=== PATIENT | female | born 1960 | race Caucasian/White ===

== ENCOUNTER 2019-04-02 07:26 | Outpatient (CLI) | payer MEDICAID, SELFPAY ==
--- NOTE | 2019-04-02 07:34 | MM_ITS ---
WS: [id number] BILATERAL DIGITAL SCREENING MAMMOGRAPHY WITH CAD CLINICAL INFORMATION: SCREENING HISTORY: Screening mammogram. No current complaints. COMPARISON: May 01, 2018 TECHNIQUE: Bilateral CC and MLO views. FINDINGS: Scattered fibroglandular densities bilaterally. Stable intramammary lymph nodes. No suspicious focal mass, asymmetry, calcifications, or architectural distortion. No evidence of malignancy. MM/[place] [id number] IMPRESSION: BI-RADS: 2-Benign FOLLOW UP: 1 Year Follow-up Recommend return to annual screening mammography.
== END 2019-04-02 07:27 | disposition home or self-care (01) ==
LOC: RADSHAW 07:29
PROVIDERS: Family Provider Family Medicine; Visit Provider Family Medicine
DX: Z12.31 Encounter for screening mammogram for malignant neoplasm of breast (principal)
CPT/HCPCS: 77067

== ENCOUNTER 2020-05-09 07:44 | Outpatient (CLI) | payer MEDICAID, SELFPAY ==
--- NOTE | 2020-05-09 07:49 | MM_ITS ---
WS: [id number] Exam: [place] [id number] Date/Time of Exam: 05/09/2020 7:49 AM Reason For Exam: SCREENING VIEWS: MLO and CC views both breasts. Comparison made with prior exam of 04/02/2017, 05/01/2018, and 04/02/2019.. Findings: There is a 3 mm ill-defined nodular density identified in the central right breast on the CC view onl y slightly medial to the nipple line. This is not definitely seen on prior studies performed in 2017 and 2018. No architectural distortion or suspicious calcification. Remaining aspects of both breasts are stable in appearance. The breasts are fatty. MM/[place] [id number] Impression: BI-RADS: 0-Incomplete: Need additional imaging evaluation FOLLOW-UP: Magnification compression spot imaging of the right breast in the CC projection suggested for further workup. Ultrasound may be necessary. This mammogram was also analyzed by the Computer Aided Detection System R2 Imag e Cracking Unit Operator.
== END 2020-05-09 07:45 | disposition home or self-care (01) ==
LOC: RADSHAW 07:47
PROVIDERS: PCP Family Medicine; Visit Provider Family Medicine
DX: Z12.31 Encounter for screening mammogram for malignant neoplasm of breast (principal); N63.10 Unspecified lump in the right breast, unspecified quadrant
CPT/HCPCS: 77067

== ENCOUNTER → 2020-06-30 14:28 | Outpatient (BNVA) | payer MEDICAID, SELFPAY | PROVIDERS: PCP Family Medicine; Visit Provider Obstetrics & Gynecology | DX: N95.2 Postmenopausal atrophic vaginitis (principal); Z90.710 Acquired absence of both cervix and uterus | CPT/HCPCS: 76830; 76857 ==

== ENCOUNTER 2020-07-21 08:53 | Outpatient (CLI) | payer MEDICAID, SELFPAY ==
--- NOTE | 2020-07-21 09:04 | US_ITS ---
WS: [id number] ADDITIONAL VIEWS RIGHT BREAST RIGHT breast ultrasound, limited HISTORY: ABNORMAL MAMMOGRAM COMPARISON: 05/09/2020, 04/02/2019 and 05/01/2018 and 05/01/2018 Compression views right CC and MLO projection. True ML also submitted. Small asymmetry seen in the medial RIGHT breast persists. This nodule measures 3 mm. This may be a be nign lymph node. Ultrasound to follow. RIGHT breast ultrasound, limited. Ultrasound is directed to the medial upper RIGHT breast. There is no underlying mass identified. No l ymph nodes. US/US breast RT limited* [id number] IMPRESSION: BI-RADS: 3-Probably Benign FOLLOW-UP: 6 Month Follow-up Recommend diagnostic mammogram in 6 months and possible ultrasound if the asymm etry persists by mammography.
== END 2020-07-21 08:54 | disposition home or self-care (01) ==
PROVIDERS: PCP Family Medicine; Visit Provider Family Medicine
DX: R92.8 Other abnormal and inconclusive findings on diagnostic imaging of breast (principal)
CPT/HCPCS: 76642; 77065

== ENCOUNTER 2022-03-30 13:41 | Outpatient (CLI) | payer MEDICAID, SELFPAY ==
--- NOTE | 2022-03-30 13:53 | MM_ITS ---
WS: [id number] BILATERAL 3D TOMOSYNTHESIS DIGITAL DIAGNOSTIC MAMMOGRAPHY WITH CAD CLINICAL INFORMATION: 6MFU COMPARISON: July 21, 2020 TECHNIQUE: Bilateral CC, MLO, and ML views. FINDINGS: Scattered fibroglandular densities bilaterally. 3 mm small asymmetry in the medial RIGHT breast is un changed from 2020. This is also stable compared to April 02, 2019. Ultrasound described below. LEFT breast is unchanged. A few tiny stable punctate and clustered calcifications. ULTRASOUND BREAST RIGHT TECHNIQUE: Ultrasound right breast focused area of concern. CLINICAL INFORMATION: 6MFU FINDINGS: Ultrasound RIGHT breast upper inner quadrant 12-3 o'clock. Small asymmetry seen on the mammogram was not visualized on this study. No suspicious lesions. No lesions to target for biopsy. 3 mm mammographic asymmetry is stable since April 02, 2019. Recommend return to annual screening m amstefanie. MM/[place] [id number] IMPRESSION: BI-RADS: 2-Benign FOLLOW UP: 1 Year Follow-up Recommend return to annual screening mammography.
== END 2022-03-30 13:42 | disposition home or self-care (01) ==
PROVIDERS: PCP Family Medicine; Visit Provider Family Medicine
DX: R92.8 Other abnormal and inconclusive findings on diagnostic imaging of breast (principal)
CPT/HCPCS: 76642; 77066

== ENCOUNTER 2023-08-01 15:32 | Outpatient (CLI) | payer MEDICAID, SELFPAY ==
--- NOTE | 2023-08-01 15:51 | MM_ITS ---
WS: [id number] BILATERAL SCREENING DIGITAL TOMOSYNTHESIS MAMMOGRAM WITH CAD HISTORY: SCREEN COMPARISON: 03/30/2022, 04/02/2019 Bilateral CC and MLO views with tomosynthesis and synthetic mammography submitted. Computer aided det ection analyzed. Breast composition: There are scattered areas of fibroglandular density. No suspicious masses, microc alcifications or architectural distortion. Stable nodules and benign calcifications in each breast. MM/[place] [id number] IMPRESSION: BI-RADS: 2-Benign FOLLOW UP: 1 Year Follow-up
== END 2023-08-01 15:33 | disposition home or self-care (01) ==
LOC: RAD 15:32
PROVIDERS: PCP Family Medicine; Visit Provider Family Medicine
DX: Z12.31 Encounter for screening mammogram for malignant neoplasm of breast (principal); R92.323 Mammographic fibroglandular density, bilateral breasts; R92.1 Mammographic calcification found on diagnostic imaging of breast; N63.20 Unspecified lump in the left breast, unspecified quadrant; N63.10 Unspecified lump in the right breast, unspecified quadrant
CPT/HCPCS: 77063; 77067

== ENCOUNTER → 2023-09-09 10:53 | Outpatient (BNVA) | payer MEDICAID, SELFPAY | PROVIDERS: PCP Family Medicine; Visit Provider Surgery | DX: Z12.11 Encounter for screening for malignant neoplasm of colon (principal); R03.0 Elevated blood-pressure reading, without diagnosis of hypertension; Z80.0 Family history of malignant neoplasm of digestive organs; K21.9 Gastro-esophageal reflux disease without esophagitis; R10.11 Right upper quadrant pain | CPT/HCPCS: 99204 ==

== ENCOUNTER 2023-10-07 07:58 | Outpatient (CLI) | payer MEDICAID, SELFPAY ==
--- NOTE | 2023-10-07 09:00 | US_ITS ---
WS: [id number] ULTRASOUND ABDOMEN LIMITED CLINICAL INFORMATION: RUQ abdominal pain COMPARISON: Ultrasound 2016 FINDINGS: Liver Size: Normal. Craniocaudal length: 13.8 cm. Echogenicity: Normal. Surface nodularity: None. Mass (size and location): None. Bile ducts Intrahepatic ducts: Normal. Common bile duct diameter: 0.3 cm. Gallbladder Cholelithiasis Gallstones: Present Gallbladder sludge: None. Gallbladder wall thickening: None. Pericholecystic fluid: None. Sonographic Garcia sign: Absent. Pancreas Normal as visualized. Right kidney: Normal. Hydronephrosis: None. Size: 10.1 cm x 5.1 cm x 3.9 cm. Abdominal aorta and IVC Visualized portions are normal. Ascites: None. US/US gall bladder [id number] IMPRESSION: 1. Cholelithiasis. Gallbladder calculus near the gallbladder neck. This is sim ilar in appearance to 2016. No gallbladder wall thickening or pericholecystic f luid. 2. Normal common bile duct. 3. No hydronephrosis in the RIGHT kidney. 4. Normal liver
== END 2023-10-07 07:59 | disposition home or self-care (01) ==
LOC: RAD 07:58
PROVIDERS: PCP Family Medicine; Visit Provider Surgery
DX: K80.20 Calculus of gallbladder without cholecystitis without obstruction (principal); R10.11 Right upper quadrant pain
CPT/HCPCS: 76705

== ENCOUNTER 2023-12-02 08:41 | Day surgery (SDC) | payer MEDICAID, SELFPAY ==
[2023-12-02 09:09] VITALS: BP 172/97; PULSE 121; RESP 20; TEMP 36.3; O2SAT 97; BMI 28.1
[2023-12-02] MEDS: sodium chloride 0.9% 1,000 ML 30 ML IV (09:13)
--- NOTE | 2023-12-02 09:35 | P.ANESASSM_ITS ---
Pre-Anesthetic Assessment Height/Weight: Height 4 ft 9 in Weight 130 lb Temp Pulse Resp BP Pulse Ox O2 Del Method 97.4 F L 121 H 20 H 172/97 97 Room Air 12/02/23 09:09 12/02/23 09:09 12/02/23 09:09 12/02/23 09:09 12/02/23 09:09 12/02/23 09:09 Preop Diagnosis: Plan for colonoscopy/EGD Operation Date: 12/02/23 09:15 Proposed Procedures p EGD - 24808, 32339, G0105,Z12.11, Z80.0, K21.9, R10.11(Not Applicable) - Giovany Damian DO s Colonoscopy(Not Applicable) - Giovany Damian DO Was Beta Rona taken within 24 hours: N/A Was Clonidine taken within 24 hours: N/A Last intake: Intake Last Liquid Date 12/01/23 Last Liquid Time 23:55 Last Solid Date 11/30/23 Last Solid Time 17:00 Social No alcohol and No tobacco Exam alert, oriented x 3, clear to auscultation bilaterally and regular rate & rhythm Airway Submandibular: within normal limits Cervical ROM: within normal limits Mallampati: Class III Dentition: other (Edentulous, small mouth opening) Anesthetic Plan ASA status: 3 Anesthesia: MAC Other: No prior issues with anesthesia Patient completed bowel prep, patient comes from a facility, guardian present Hypothyroidism on Synthroid Hypertension on lisinopril Takes trazodone nightly Denies any pulmonary issues METs greater than 4 Plan for MAC anesthesia Medications/Allergies Home Medications Medication Instructions Recorded Confirmed Last Taken Type alprazolam 0.25 mg tablet (Xanax) 0.25 mg PO BEDTIME 06/24/20 11/28/23 12/01/23 History clonidine HCl 0.1 mg tablet 0.1 mg PO DAILY 06/24/20 11/28/23 12/01/23 History fluticasone propionate 50 1 spray intranasal BID 06/24/20 11/28/23 12/01/23 History mcg/actuation nasal spray,suspension hydroxyzine pamoate 25 mg capsule 25 mg PO DAILY PRN Itching 06/24/20 11/28/23 1 Month Ago History (Vistaril) ~11/02/23 loratadine 10 mg tablet (Claritin) 10 mg PO DAILY 06/24/20 11/28/23 12/01/23 History multivitamin 1 tab PO BID 06/24/20 11/28/23 11/28/23 History pantoprazole 40 mg tablet,delayed 40 mg PO DAILY 06/24/20 11/28/23 12/01/23 History release (Protonix) trazodone 50 mg tablet 50 mg PO BEDTIME 06/24/20 11/28/23 12/01/23 History venlafaxine 37.5 mg tablet 37.5 mg PO DAILY 06/24/20 11/28/23 12/01/23 History acetaminophen 500 mg tablet 500 mg PO Q6H PRN Pain 10/28/23 11/28/23 1 Month Ago History ~11/02/23 ascorbic acid (vitamin C) 500 mg 500 mg PO DAILY PRN Outbreak 10/28/23 11/28/23 1 Month Ago History chewable tablet (Vitamin C) ~11/02/23 guaifenesin 100 mg/5 mL oral liquid 200 mg PO Q4H PRN Cough 10/28/23 11/28/23 1 Month Ago History ~11/02/23 levothyroxine 50 mcg tablet 50 mcg PO DAILY 10/28/23 12/02/23 12/01/23 History 0600 lisinopril 10 mg tablet 10 mg PO DAILY 10/28/23 11/28/23 12/01/23 History polyethylene glycol 3350 17 gram 17 g PO DAILY 10/28/23 11/28/23 12/01/23 History oral powder packet (Miralax) sodium chloride 0.65 % nasal spray 1 spray intranasal TID 10/28/23 11/28/23 12/01/23 History aerosol (Deep Sea Nasal) Allergies Allergy/AdvReac Type Severity Reaction Status Date / Time No Known Allergies Allergy Verified 11/28/23 15:27 Current Medications Generic Name Dose Route Start Last Admin Trade Name Freq PRN Reason Stop Dose Admin Sodium Chloride 1,000 mls @ 30 mls/hr 12/02/23 09:00 12/02/23 09:13 Sodium Chloride 0.9% IV 12/03/23 08:59 30 mls/hr .Q24H CHITRA Administration PFSH Anesthesia Medical History (Updated 09/09/23 @ 11:30 by Giovany Damian DO) H/O fracture of arm 2013- For fracture of the forearm/wrist. Status post hysteroscopy Done on 02/21/2010 for menorrhagia and anemia. During hysteroscopy a friable mass was noted on the left side which protruded into the endometrial cavity which was concerning for malignancy and this was curetted. 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 Family history of colon cancer Surgical History (Updated 09/09/23 @ 11:30 by Giovany Damian DO) H/O: hysterectomy -She underwent a total abdominal hysterectomy, bilateral salpingo- oophorectomy, pelvic washings with partial omentectomy and appendectomy in March [address] Melo for serious endometrial carcinoma with acute bleeding. H/O gynecological procedure Robotic Surgery performed by Dr. Ding in 2010- Done for staging for endometrial cancer after her total abdominal hysterectomy done on 05/26/2010 and operative reports as per Dr. Patricia's notes shows significant adhesions. S/P appendectomy H/O lumpectomy right breast 2017 Family History Family/Other Diabetes maternal Stroke paternal cousin Grandmother Diabetes maternal Mother Heart disease Thyroid disease Colon cancer, Onset Age: 81 Denies family history of Ovarian cancer Clotting disorder Hyperlipidemia Breast cancer Anesthesia complication Bleeding disorder Hypertension Uterine cancer Social History Smoking and tobacco/nicotine status: never used tobacco/nicotine Alcohol intake: never Substance/Drug Use: never Data Anesthesia Cardiac Studies: No Data to Display
--- NOTE | 2023-12-02 09:49 | P.HP_ITS ---
Providers/Chief Complaint Primary Care Provider: Rosemary Srivastava MD Chief Complaint: Z12.11, Z80.0, K21.9, R10.11 History of Present Illness Queta Helton is a 63 year old female Review of Systems General: Reports: 10 or more systems reviewed and unremarkable except in HPI and below Medications/Allergies Home Medications Medication Instructions Recorded Confirmed Last Taken Type alprazolam 0.25 mg tablet (Xanax) 0.25 mg PO BEDTIME 06/24/20 11/28/23 12/01/23 History clonidine HCl 0.1 mg tablet 0.1 mg PO DAILY 06/24/20 11/28/23 12/01/23 History fluticasone propionate 50 1 spray intranasal BID 06/24/20 11/28/23 12/01/23 History mcg/actuation nasal spray,suspension hydroxyzine pamoate 25 mg capsule 25 mg PO DAILY PRN Itching 06/24/20 11/28/23 1 Month Ago History (Vistaril) ~11/02/23 loratadine 10 mg tablet (Claritin) 10 mg PO DAILY 06/24/20 11/28/23 12/01/23 History multivitamin 1 tab PO BID 06/24/20 11/28/23 11/28/23 History pantoprazole 40 mg tablet,delayed 40 mg PO DAILY 06/24/20 11/28/23 12/01/23 History release (Protonix) trazodone 50 mg tablet 50 mg PO BEDTIME 06/24/20 11/28/23 12/01/23 History venlafaxine 37.5 mg tablet 37.5 mg PO DAILY 06/24/20 11/28/23 12/01/23 History acetaminophen 500 mg tablet 500 mg PO Q6H PRN Pain 10/28/23 11/28/23 1 Month Ago History ~11/02/23 ascorbic acid (vitamin C) 500 mg 500 mg PO DAILY PRN Outbreak 10/28/23 11/28/23 1 Month Ago History chewable tablet (Vitamin C) ~11/02/23 guaifenesin 100 mg/5 mL oral liquid 200 mg PO Q4H PRN Cough 10/28/23 11/28/23 1 Month Ago History ~11/02/23 levothyroxine 50 mcg tablet 50 mcg PO DAILY 10/28/23 12/02/2324 History 0600 lisinopril 10 mg tablet 10 mg PO DAILY 10/28/23 11/28/23 12/01/23 History polyethylene glycol 3350 17 gram 17 g PO DAILY 10/28/23 11/28/23 12/01/23 History oral powder packet (Miralax) sodium chloride 0.65 % nasal spray 1 spray intranasal TID 10/28/23 11/28/23 12/01/23 History aerosol (Deep Sea Nasal) Allergies Allergy/AdvReac Type Severity Reaction Status Date / Time No Known Allergies Allergy Verified 11/28/23 15:27 PFSH Acute PFSH: Medical History (Updated 09/09/23 @ 11:30 by Giovany Damian DO) H/O fracture of arm 2013- For fracture of the forearm/wrist. Status post hysteroscopy Done on 02/21/2010 for menorrhagia and anemia. During hysteroscopy a friable mass was noted on the left side which protruded into the endometrial cavity which was concerning for malignancy and this was curetted. 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 Family history of colon cancer Surgical History (Updated 09/09/23 @ 11:30 by Giovany Damian DO) H/O: hysterectomy -She underwent a total abdominal hysterectomy, bilateral salpingo- oophorectomy, pelvic washings with partial omentectomy and appendectomy in March [address] Melo for serious endometrial carcinoma with acute bleeding. H/O gynecological procedure Robotic Surgery performed by Dr. Ding in 2010- Done for staging for endometrial cancer after her total abdominal hysterectomy done on 05/26/2010 and operative reports as per Dr. Patricia's notes shows significant adhesions. S/P appendectomy H/O lumpectomy right breast 2017 Family History Family/Other Diabetes maternal Stroke paternal cousin Grandmother Diabetes maternal Mother Heart disease Thyroid disease Colon cancer, Onset Age: 80 Denies family history of Ovarian cancer Clotting disorder Hyperlipidemia Breast cancer Anesthesia complication Bleeding disorder Hypertension Uterine cancer Social History Smoking and tobacco/nicotine status: never used tobacco/nicotine Alcohol intake: never Substance/Drug Use: never Vitals/I&O/Wt Last Vital Signs Temp 97.4 F L 12/02/23 09:09 Pulse 121 H 12/02/23 09:09 Resp 20 H 12/02/23 09:09 BP 172/97 12/02/23 09:09 Pulse Ox 97 12/02/23 09:09 O2 Del Method Room Air 12/02/23 09:09 Weight last 48 hrs Weight 130 lb A&P Assessment and plan (1) Family history of colon cancer: (2) GERD (gastroesophageal reflux disease): (3) Right upper quadrant abdominal pain: Plan EGD and colonoscopy Attestations Medical Necessity Statement*: Home Coding Level of Care Code Acute Code for Chg Fwd Diagnoses Family history of colon cancer Z80.0 GERD (gastroesophageal reflux disease) K21.9 Right upper quadrant abdominal pain R10.11
[2023-12-02 10:12] VITALS: BP 122/78; PULSE 102; RESP 18; TEMP 36.1; O2SAT 94
[2023-12-02 10:35] VITALS: BP 139/83; PULSE 99; RESP 18; O2SAT 100
--- NOTE | 2023-12-02 11:05 | ANE.PACU2 ---
Inpatient post-anesthesia follow up: Airway intact: Yes Vital signs: Temperature 97 F Pulse Rate 99 Respiratory Rate 18 Blood Pressure 139/83 Pulse Oximetry 100 Oxygen Delivery Me thod Room Air Oxygen Flow Rate Fraction of Inspir ed Oxygen Hydration adequate: Yes Nausea and vomiting: No Pain level: 1 Mental status: Baseline
== END 2023-12-02 11:05 | disposition home or self-care (01) ==
PROVIDERS: PCP Family Medicine; Visit Provider Surgery
PROC: 0DJ08ZZ Inspection of Upper Intestinal Tract, Via Natural or Artificial Opening Endoscopic (ICD-10-PCS; CPT 43235; principal; 2023-12-02 09:15)
PROC: 0DJD8ZZ Inspection of Lower Intestinal Tract, Via Natural or Artificial Opening Endoscopic (ICD-10-PCS; CPT 45378; 2023-12-02 09:15)
DX: Z12.11 Encounter for screening for malignant neoplasm of colon (principal); Z80.0 Family history of malignant neoplasm of digestive organs; K21.00 Gastro-esophageal reflux disease with esophagitis, without bleeding; D12.3 Benign neoplasm of transverse colon; K20.90 Esophagitis, unspecified without bleeding; K44.9 Diaphragmatic hernia without obstruction or gangrene; E03.9 Hypothyroidism, unspecified; I10 Essential (primary) hypertension
CPT/HCPCS: 43239; 45385; 88305; 88342; J2704; J7030

== ENCOUNTER 2024-05-17 12:03 | Emergency (ER) | payer MEDICAID, SELFPAY ==
[2024-05-17] VITALS (31 sets, daily range): BP systolic 102–140; BP diastolic 60–86; PULSE 94–129; RESP 11–26; TEMP 36.7; O2SAT 87–96; BMI 27.9
--- NOTE | 2024-05-17 12:58 | ECG_ITS ---
[facility]24-[facility]17 Pat Name: Queta Helton Department: Room: Gender: Female Clinical Exercise Physiologist: : [id number] Requested By: Krysta Montenegro Order Number: [id number] Reading MD: Measurements Intervals [place] Rate: 129 P: 35 CA: 141 QRS: 20 QRSD: 93 T: 68 QT: 331 QTc: 486 Interpretive Statements SINUS TACHYCARDIA MODERATE ST DEPRESSION [0.05+ mV ST DEPRESSION] INTERPRETATION BASED ON A DEFAULT AGE OF 40 YEARS No previous ECG available for comparison [email or web address]
--- NOTE | 2024-05-17 12:59 | W.ED.ABDPA2 ---
HPI - Abdominal Pain General: Chief Complaint: Abdominal Pain Stated Complaint: abd pain Time Seen by Provider: 05/17/24 12:52 History of Present Illness: 63-year-old female with history of anxiety, COPD, hypothyroidism, hypertension, and depression who presents to the emergency room with decreased urine output and abdominal pain. She complains of low abdominal pain but then also points at the rest of her abdomen. She seems somewhat confused and has difficulty answering questions promptly. Related Data Home Medications ?Medication ?Instructions ?Recorded ?Confirmed alprazolam 0.25 mg tablet (Xanax) 0.25 mg PO BEDTIME 06/24/20 05/17/24 fluticasone propionate 50 1 spray intranasal BID 06/24/20 05/17/24 mcg/actuation nasal spray,suspension loratadine 10 mg tablet (Claritin) 10 mg PO DAILY 06/24/20 05/17/24 multivitamin 1 tab PO BID 06/24/20 05/17/24 pantoprazole 40 mg tablet,delayed 40 mg PO DAILY 06/24/20 05/17/24 release (Protonix) venlafaxine 37.5 mg tablet 37.5 mg PO BID 06/24/20 05/17/24 acetaminophen 500 mg tablet 500 mg PO Q6H PRN Pain 10/28/23 05/17/24 ascorbic acid (vitamin C) 500 mg 500 mg PO DAILY PRN Outbreak 10/28/23 05/17/24 chewable tablet (Vitamin C) guaifenesin 100 mg/5 mL oral liquid 200 mg PO Q4H PRN Cough 10/28/23 05/17/24 levothyroxine 50 mcg tablet 50 mcg PO DAILY 10/28/23 05/17/24 polyethylene glycol 3350 17 gram 17 g PO DAILY 10/28/23 05/17/24 oral powder packet (Miralax) sodium chloride 0.65 % nasal spray 1 spray intranasal TID 10/28/23 05/17/24 aerosol (Deep Sea Nasal) lisinopril 20 mg tablet 20 mg PO DAILY 05/17/24 05/17/24 phenylephrine-shark liver 1 applic ME Q8H may keep at bedside 05/17/24 05/17/24 oil-mineral oil-petrolatum rectal ointment (Hemorrhoidal ointment) Allergies Allergy/AdvReac Type Severity Reaction Status Date / Time No Known Allergies Allergy Verified 05/17/24 12:26 Review of Systems General: Reports: 10 or more systems reviewed and unremarkable except in HPI and below PFSH ED PFSH: Medical History (Updated 05/17/24 @ 18:54 by Krysta Crawford MD) H/O fracture of arm 2013- For fracture of the forearm/wrist. Status post hysteroscopy Done on 02/21/2010 for menorrhagia and anemia. During hysteroscopy a friable mass was noted on the left side which protruded into the endometrial cavity which was concerning for malignancy and this was curetted. 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 Family history of colon cancer Surgical History (Updated 09/09/23 @ 11:30 by Giovany Damian DO) H/O: hysterectomy -She underwent a total abdominal hysterectomy, bilateral salpingo-oophorectomy, pelvic washings with partial omentectomy and appendectomy in [place] [address] Melo for serious endometrial carcinoma with acute bleeding. H/O gynecological procedure Robotic Surgery performed by Dr. Ding in 2010- Done for staging for endometrial cancer after her total abdominal hysterectomy done on 05/26/2010 and operative reports as per Dr. Patricia's notes shows significant adhesions. S/P appendectomy H/O lumpectomy right breast 2017 Family History Family/Other Diabetes maternal Stroke paternal cousin Grandmother Diabetes maternal Mother Heart disease Thyroid disease Colon cancer, Onset Age: 81 Denies family history of Ovarian cancer Clotting disorder Hyperlipidemia Breast cancer Anesthesia complication Bleeding disorder Hypertension Uterine cancer Social History Smoking and tobacco/nicotine status: never used tobacco/nicotine Alcohol intake: never Substance/Drug Use: never Physical Exam Narrative: EXAM NARRATIVE: General: Alert, no acute distress. Skin: Warm, dry. Head: Normocephalic, atraumatic. Neck: Supple, trachea midline. Eye: Extraocular movements are intact. Ears, nose, mouth and throat: Dry oral mucosa Cardiovascular: Regular, tachycardic, normal peripheral perfusion. Respiratory: Lungs are clear to auscultation, respirations are non-labored, breath sounds are equal, Symmetrical chest wall expansion. Gastrointestinal: Soft, diffuse nonfocal abdominal pain, Non distended Musculoskeletal: Normal ROM, no deformity. Neurological: Alert, No focal neurological deficit observed. Psychiatric: Patient has an odd affect and is a bit slow to answer questions Course Vital Signs: Vital signs: Vital Signs Temperature 98.1 F 05/17/24 12:09 Pulse Rate 99 05/17/24 18:50 Respiratory Rate 18 05/17/24 18:50 Blood Pressure 137/72 05/17/24 18:50 Pulse Oximetry 89 L 05/17/24 18:50 Oxygen Delivery Me thod Room Air 05/17/24 12:09 MDM - Abdominal Pain Medical Decision Making Medical decision making: Differential diagnosis for this patient with nausea and vomiting including but not limited to and based on the above HPI, review of systems and physical exam: Urinary tract infection. Appendicitis. Cholecystitis. Colitis. small bowel obstruction. crohn's flare. pancreatitis. gastritis. peptic ulcer. cyclic vomiting. Viral illness. Influenza. COVID. Orders placed to evaluate differential diagnosis based on the above differential, HPI and physical exam EKG: Time 1219. Rate 129. Sinus tachycardia, nonspecific ST changes/depression, no ectopy, normal ME & QRS intervals, This was reviewed and interpreted by myself the ER physician at 1225 Lab Review: Laboratory results were reviewed and interpreted by myself the emergency room physician. Significant leukocytosis with a white count of 20,000. Hemoglobin a bit elevated at 17. BUN and creatinine are elevated at 89 and 4.2. I have no lab work for comparison. CT of the abdomen pelvis without contrast: Cholelithiasis with over distended gallbladder. She does have tenderness. Ultrasound has been done. No hydronephrosis or obstructing urinary stones. This was reviewed and interpreted by myself the emergency room physician. I also reviewed the radiology report. I reviewed the patient's medical record. Reexamination: After fluids and antibiotics patient does seem a little bit more lucid and answers questions a bit more readily. She is having some right upper quadrant pain. She says she has been vomiting for several days. She has leukocytosis and renal failure. Urine does not appear to be source. At this point could just be leukocytosis and renal failure from dehydration and vomiting but I have to be concerned that she is septic from her gallbladder. After 2 L of fluid she is only put out about 50 cc of urine. However her blood pressure has improved to the 130s and her heart rate has come down from the 130s to the mid 90s. Transfer: Patient needs general surgery consultation most likely. She is currently septic and it is pointing to a bad gallbladder that is the source. We did not currently have general surgery so she will need transferred where that is available. Consultation: I spoke with Dr. Ahn with general surgery and [facility] in [place]. She feels the patient is not surgical at this point but if needed general surgery will consult. Consultation: I spoke with Dr. Jessica Moore with the hospitalist service at [facility]. She is accepted the patient to a stepdown bed. Assessment and plan: Sepsis Renal failure Dehydration Cholelithiasis with possible cholecystitis Metabolic encephalopathy Uropathy Oliguria -2 L normal saline bolus. Fluid volumes based on ideal body weight. 1750 goal of given extra and started her on 150 mL an hour as she is still having oliguria. -Broad-spectrum antibiotics were administered. Meropenem and Zyvox. No clear source possibly gallbladder. -Sepsis quality measures. -Lactic acid with a reflex was ordered. -Blood cultures were ordered. ?Roy catheter was placed -I discussed the patient with the accepting physician on-call. - Discussed findings and plan with patient. Answered any questions. - All laboratory values were reviewed and interpreted personally by myself, the ER physician - All imaging was reviewed and interpreted personally by myself, the ER physician. - Evaluation and treatment of this problem were appropriate in the emergency setting Critical care -I spent a total of >35 minutes of critical care time managing the patient, independent of any other practitioner. -The time involved in the performance of separately reportable procedures was not counted towards critical care time. Lab Data 05/17/24 13:21 05/17/24 13:21 Labs/Radiology: Radiology Impressions Abdomen/Pelvis CT 05/17/24 14:02 IMPRESSION: 1. Cholelithiasis with over distended gallbladder that needs correlation with ultrasound to rule out acute cholecystitis. 2. No hydronephrosis or obstructing urinary stones. Laboratory Results WBC 19.95 10^3/uL (3.29-11.43) H 05/17/24 13:21 RBC 5.68 10^6/uL (3.85-5.65) H 05/17/24 13:21 Hgb 17.10 g/dL (11.27-16.99) H 05/17/24 13:21 Hct 50.4 % (36-47) H 05/17/24 13:21 MCV 88.7 fl (85-98) 05/17/24 13:21 MCH 30.1 pg (27-33) 05/17/24 13:21 MCHC 33.9 g/dL (30-55) 05/17/24 13:21 RDW 13.7 % (12.1-15.1) 05/17/24 13:21 Plt Count 412 10^3/cmm (157-399) H 05/17/24 13:21 MPV 10.2 fL (7.4-10.4) 05/17/24 13:21 Neut % (Auto) 81.6 % 05/17/24 13:21 Lymph % (Auto) 7.5 % 05/17/24 13:21 [place] % (Auto) 10.2 % 05/17/24 13:21 Eos % (Auto) 0.0 % 05/17/24 13:21 Baso % (Auto) 0.2 % 05/17/24 13:21 Neut # (Auto) 16.30 10^3/uL (1.8-7.7) H 05/17/24 13:21 Lymph # (Auto) 1.5 10^3/uL (0.8-4.8) 05/17/24 13:21 [place] # (Auto) 2.0 10^3/uL (0.2-0.9) H 05/17/24 13:21 Eos # (Auto) 0.0 10^3/uL (0.0-0.8) 05/17/24 13:21 Baso # (Auto) 0.0 10^3/uL (0.0-0.1) 05/17/24 13:21 Nucleated RBC % (auto) 0 % 05/17/24 13:21 Nucleated RBCs # 0.0 /100WBC 05/17/24 13:21 Sodium 138 mmol/L (136-145) 05/17/24 13:21 Potassium 3.2 mmol/L (3.5-5.1) L 05/17/24 13:21 Chloride 87 mmol/L (98-107) L 05/17/24 13:21 Carbon Dioxide 25 mmol/L (22-29) 05/17/24 13:21 Anion Gap 29.2 (5-19) H 05/17/24 13:21 BUN 89 mg/dL (8-23) H* 05/17/24 13:21 Creatinine 4.2 mg/dL (0.5-0.9) H 05/17/24 13:21 GFR Calculation 10.7 mL/min (90-130) L 05/17/24 13:21 Glucose 152 mg/dL (65-115) H 05/17/24 13:21 Calculated Osmolality 316 mOsm/kg (285-295) H 05/17/24 13:21 Lactic Acid 2.0 mmol/L (0.5-2.2) 05/17/24 13:21 Calcium 9.9 mg/dL (8.5-10.5) 05/17/24 13:21 Phosphorus 6.7 mg/dL (2.5-4.5) H 05/17/24 13:21 Magnesium 2.8 mg/dL (1.7-2.3) H 05/17/24 13:21 Total Bilirubin 0.5 mg/dL (0.15-1.2) 05/17/24 13:21 AST 26 U/L (0-32) 05/17/24 13:21 ALT 19 U/L (0-33) 05/17/24 13:21 Alkaline Phosphatase 74 U/L (35-105) 05/17/24 13:21 C-Reactive Protein 39.7 mg/L (0.0-4.9) H 05/17/24 13:21 Total Protein 9.1 g/dL (6.6-8.7) H 05/17/24 13:21 Albumin 5.1 g/dL (3.5-5.2) 05/17/24 13:21 Globulin 4.0 g/dL (1.3-4.6) 05/17/24 13:21 Lipase 30 U/L (13-60) 05/17/24 13:21 Urine Color Dark yellow (Yellow) A 05/17/24 15:04 Urine Appearance Cloudy (CLEAR) A 05/17/24 15:04 Urine pH 5 (5-7) 05/17/24 15:04 Ur Specific [place] 1.030 (1.005-1.030) 05/17/24 15:04 Urine Protein 2+ (Negative) H 05/17/24 15:04 Urine Glucose (UA) Trace (Normal) H 05/17/24 15:04 Urine Ketones 1+ (Negative) H 05/17/24 15:04 Urine Blood 3+ (Negative) H 05/17/24 15:04 Urine Nitrate Negative (Negative) 05/17/24 15:04 Urine Bilirubin 1+ (Negative) H 05/17/24 15:04 Urine Urobilinogen Neg mg/dL (Negative) 05/17/24 15:04 Ur Leukocyte Esterase Negative (Negative) 05/17/24 15:04 Urine RBC 11-20 /hpf (0-2) H 05/17/24 15:04 Urine WBC 0-5 /hpf (0-5) 05/17/24 15:04 Ur Squamous Epith Cells 11-20 /hpf (0-5) H 05/17/24 15:04 Amorphous Sediment Trace /hpf 05/17/24 15:04 Urine Bacteria 1+ /hpf (NONE) H 05/17/24 15:04 Hyaline Casts 37.23 /lpf 05/17/24 15:04 Coarse Granular Casts 0-4 /lpf H 05/17/24 15:04 Urine Mucus Trace /hpf 05/17/24 15:04 Ur Random Sodium 19 mmol/L 05/17/24 15:04 Ur Random Potassium 124 mmol/L 05/17/24 15:04 Ur Random Chloride 13 mmol/L 05/17/24 15:04 All radiology interpretation(s) finalized by discharge Discharge Plan Discharge Patient Disposition: Xfer Short-Term Hosp Clinical Impression: Sepsis, Acute renal failure, Dehydration, Nausea & vomiting, Cholelithiasis Condition: Stable Referrals: Rosemary Srivastava MD [Primary Care Provider] - Print Language: Romanian Coding Level of Care Code ED Manager Privacy for g Alanna
[2024-05-17 13:29] LABS: Basophils % 0.2 %; Hematocrit 50.4 % (36-47); Lymphocytes # 1.5 10^3/uL (0.8-4.8); Lymphocytes % 7.5 %; Mean Corpuscular HGB Conc 33.9 g/dL (30-55); Mean Corpuscular Hemoglobin 30.1 pg (27-33); Mean Corpuscular Volume 88.7 fl (85-98); Mean Platelet Volume 10.2 fL (7.4-10.4); Monocytes % 10.2 %; Neutrophils % 81.6 %; Nucleated Red Blood Cells % 0 %; Platelet Count 412 10^3/cmm (157-399); Red Blood Count 5.68 10^6/uL (3.85-5.65); Red Cell Distribution Width 13.7 % (12.1-15.1); White Blood Count 19.95 10^3/uL (3.29-11.43)
[2024-05-17 13:55] LABS: Alanine Aminotransferase 19 U/L (0-33); Albumin Level 5.1 g/dL (3.5-5.2); Alkaline Phosphatase 74 U/L (35-105); Anion Gap 29.2 (5-19); Aspartate Amino Transferase 26 U/L (0-32); C Reactive Protein 39.7 mg/L (0.0-4.9); Calcium 9.9 mg/dL (8.5-10.5); Carbon Dioxide 25 mmol/L (22-29); Chloride 87 mmol/L (98-107); Glomerular Filtration Rate 10.7 mL/min (90-130); Glucose 152 mg/dL (65-115); Lipase 30 U/L (13-60); Osmolality Calculated 316 mOsm/kg (285-295); Potassium 3.2 mmol/L (3.5-5.1); Sodium 138 mmol/L (136-145); Total Bilirubin 0.5 mg/dL (0.15-1.2); Total Protein 9.1 g/dL (6.6-8.7)
[2024-05-17 14:00] LABS: Blood Urea Nitrogen 89 mg/dL (8-23)
--- NOTE | 2024-05-17 14:02 | CTR_ITS ---
PROCEDURE INFORMATION: Exam: CT Abdomen And Pelvis Without Contrast Exam date and time: 05/17/2024 3:19 PM Age: 63 years old Clinical indication: Abdominal tenderness; Additional info: Renal failure, R/O obstructive uropathy per hospitalist TECHNIQUE: Imaging protocol: Computed tomography of the abdomen and pelvis without contrast. Radiation optimization: All CT scans at this facility use at least one of these dose optimization techniques: automated exposure control; mA and/or kV adjustment per patient size (includes targeted exams where dose is matched to clinical indication); or iterative reconstruction. COMPARISON: US gall bladder [id number] 10/07/2023 8:25 AM RADIATION DOSE METRICS: Total DLP (mGy-cm): 369.4 FINDINGS: Tubes, catheters and devices: Surgical clips in the pelvis. Lungs: Bilateral lower lobe atelectasis. Liver: Normal. No mass. Gallbladder and biliary ducts: Multiple gallstones are present. Over distended gallbladder. Pancreas: Normal. No ductal dilation. Spleen: Normal. No splenomegaly. Adrenal glands: Normal. No mass. Kidneys and ureters: Normal. No hydronephrosis. Stomach and bowel: Mild diverticulosis is present in the distal colon. Over distended stomach and duodenal. No transition zone to suggest bowel obstruction. Appendix: No evidence of appendicitis. Intraperitoneal space: Unremarkable. No free air. No significant fluid collection. Vasculature: The vasculature demonstrates diffuse mild atherosclerotic calcification. Lymph nodes: Unremarkable. No enlarged lymph nodes. Urinary bladder: Roy catheter in the bladder Reproductive: Unremarkable as visualized. Bones/joints: Demineralization of the visualized bones, limiting sensitivity for nondisplaced fractures. There are mild degenerative changes of the sacroiliac joints. The pubic symphysis demonstrates mild degenerative changes. There are mild degenerative changes of the hip joints. Mild curvature of the lumbar spine convex to the left. Bilateral facet joint arthropathy at L2-L3 with mild anterolisthesis of L2 over L3. Soft tissues: There is a fat-containing umbilical hernia. CT/CT abdomen pelvis wo con [id number] IMPRESSION: 1. Cholelithiasis with over distended gallbladder that needs correlation with ultrasound to rule out acute cholecystitis. 2. No hydronephrosis or obstructing urinary stones.
--- NOTE | 2024-05-17 14:19 | PC.PHAR ---
Pt is from [facility]
[2024-05-17 14:31] LABS: Magnesium 2.8 mg/dL (1.7-2.3); Phosphorus 6.7 mg/dL (2.5-4.5)
[2024-05-17] MEDS: sodium chloride 0.9% 1,000 ML 999 ML IV ×2 (15:08→15:09)
[2024-05-17] MEDS: meropenem 500 mg SDV IVP (15:09)
[2024-05-17] MEDS: linezolid premix 600 MG/300 ML PREMIX 300 MG IV (15:09)
[2024-05-17 15:19] LABS: Bilirubin Urine 1+ (Negative); Blood Urine 3+ (Negative); Glucose Urine UA Trace (Normal); Ketones Urine 1+ (Negative); Leukocyte Esterase Urine Negative (Negative); Nitrate Urine Negative (Negative); Protein Urine 2+ (Negative); Urine Appearance Cloudy (CLEAR); Urine Color Dark Yellow (Yellow); Urobilinogen Urine Neg (Negative); pH Urine 5 (5-7)
[2024-05-17 15:23] LABS: Hyaline Casts Urine 37.23 /lpf; WBC Urine 0-5 /hpf (0-5)
[2024-05-17 15:33] LABS: Urine Random Chloride 13 mmol/L; Urine Random Sodium 19 mmol/L
[2024-05-17 15:35] LABS: UA Slide Review UA Slide Review Perf
[2024-05-17 15:36] LABS: Amorphous Sediment Urine TRACE /hpf; Bacteria Urine 1+ /hpf; Coarse Granular Casts Urine 0-4 /lpf; Mucus Urine TRACE /hpf
[2024-05-17 15:45] LABS: Potassium, Radom Urine 124 mmol/L
--- NOTE | 2024-05-17 17:08 | USR_ITS ---
PROCEDURE INFORMATION: Exam: US Abdomen, Limited; Right Upper Quadrant Exam date and time: 05/17/2024 5:35 PM Age: 63 years old Clinical indication: Abdominal pain; Localized; Right upper quadrant (ruq); Additional info: Right upper quadrant pain, concern for cholecystitis TECHNIQUE: Imaging protocol: Real time ultrasound of the abdomen with image documentation. Limited exam focused on the right upper quadrant. COMPARISON: US gall bladder [id number] 10/07/2023 8:25 AM FINDINGS: Liver: Mildly echogenic, consistent with fatty infiltration. Gallbladder: Mildly distended with dependent stones. No definite gallbladder wall thickening or pericholecystic fluid. Negative sonographic Garcia's sign, as per the performing inspector optical instrument. Biliary ducts: No stones. No ductal dilatation. Pancreas: Unremarkable as visualized. Right kidney: No mass. No definite stones. No hydronephrosis. Stomach: Moderate gastric distension. US/US gall bladder [id number] IMPRESSION: 1. Cholelithiasis and mild gallbladder distension without convincing sonographic evidence of acute cholecystitis. 2. Moderate gastric distension. 3. Fatty liver.
[2024-05-17] MEDS: sodium chloride 0.9% 1,000 ML 150 ML IV (17:28)
== END 2024-05-17 21:35 | disposition short-term general hospital (02) ==
PROVIDERS: Emergency Provider Emergency Medicine; PCP Family Medicine
DX: A41.9 Sepsis, unspecified organism (principal); N17.9 Acute kidney failure, unspecified; E86.0 Dehydration; R11.2 Nausea with vomiting, unspecified; K80.20 Calculus of gallbladder without cholecystitis without obstruction
CPT/HCPCS: 36415; 74176; 76705; 80053; 81001; 82436; 83605; 83690; 83735; 84100; 84133; 84300; 85025; 86140; 93005; 96361; 96365; 96375; 99285; J2020; J2185; J7030

== ENCOUNTER 2024-08-05 08:29 | Outpatient (CLI) | payer MEDICAID, SELFPAY ==
--- NOTE | 2024-08-05 08:45 | MM_ITS ---
WS: [id number] BILATERAL SCREENING DIGITAL TOMOSYNTHESIS MAMMOGRAM WITH CAD HISTORY: SCREEN COMPARISON: 08/01/2023, 05/09/2020 Bilateral CC and MLO views with tomosynthesis and synthetic mammography submitted. Computer aided detection analyzed. Breast composition: The breasts are almost entirely fatty. No suspicious masses, microcalcifications or architectural distortion. Stable appearance of the small calcifications in nodules within each breast. MM/MM scr BI tomosynthesis [id number] IMPRESSION: BI-RADS: 2 - Benign. FOLLOW UP: 1 Year Follow-up
== END 2024-08-05 08:30 | disposition home or self-care (01) ==
PROVIDERS: PCP Family Medicine; Visit Provider Internal Medicine
DX: Z12.31 Encounter for screening mammogram for malignant neoplasm of breast (principal)
CPT/HCPCS: 77063; 77067